=== PATIENT | female | born 1985 | race Caucasian/White ===

== ENCOUNTER 2018-09-13 22:59 | Emergency (ER) | payer SELFPAY ==
[2018-09-13] MEDS ORDERED: KETOROLAC 30 MG/ML INJ ONE (23:27)
[2018-09-13 23:53] LABS: Absolute Lymphocytes (CBC) 3.4 K/uL (0.7-4.9); Basophils % 0.5 % (0-1.3); Hematocrit 37.1 % (36.0-45.0); Lymphocytes % 38.5 % (15.3-44.8); MPV 10.1 fL (7.6-11.3)
[2018-09-14 00:06] LABS: ALT/SGPT 32 U/L (12-78); AST/SGOT 36 U/L (15-37); Albumin 3.4 g/dL (3.4-5.0); Alkaline Phosphatase 93 U/L (45-117); BUN Blood Urea Nitrogen 8 mg/dL (7-18); Bicarbonate 22 mmol/L (21-32); Glucose Level 104 mg/dL (74-106); Potassium 3.5 mmol/L (3.5-5.1); Protein, Total 7.5 g/dL (6.4-8.2); Sodium Level 139 mmol/L (136-145); Troponin (Emerg Dept Use Only) < 0.02 ng/mL (0.0-0.045)
[2018-09-14 00:10] LABS: Bilirubin Total < 0.1 mg/dL (0.2-1.0)
[2018-09-14 01:15] LABS: Urine Blood TRACE (NEG); Urine Glucose NEGATIVE (NEG); Urine Protein NEGATIVE (NEG)
--- NOTE | 2018-09-14 02:28 | ER ---
Nurse's Notes [facility] Name: Stephie Schaefer Age: 32 yrs Sex: Female : 1985 Arrival Date: 09/13/2018 Time: 23:00 Bed 7 Private MD: Diagnosis: Thoracic Back Pain;Elevated D-dimer Presentation: 09/13 23:15 Presenting complaint: Patient states: she was sitting on the couch watching TV tonight bb and started having severe back pain "it feels like fireworks going off" then she started having an anxiety attack with numbness and cramping to right side pt has had similar symptoms in the past but not this bad. Transition of care: patient was not received from another setting of care. Onset of symptoms was September 13, 2018. Risk Assessment: Do you want to hurt yourself or someone else? Patient reports no desire to harm self or others. Initial Sepsis Screen: Does the patient meet any 2 criteria? No. Patient's initial sepsis screen is negative. Does the patient have a suspected source of infection? No. Patient's initial sepsis screen is negative. Care prior to arrival: None. 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 - Social history:: Smoking status: Patient uses tobacco products, smokes one-half pack cigarettes per day, Patient uses alcohol, but reports only rare drinking. - Ebola Screening: : No symptoms or risks identified at this time. Screenin:50 Abuse screen: Denies threats or abuse. Nutritional screening: No deficits noted. ea Tuberculosis screening: No symptoms or risk factors identified. Fall Risk None identified. Assessment: 23:40 General: Appears uncomfortable, Behavior is calm, cooperative, appropriate for age. ea Pain: Complains of pain in thoracic area. Neuro: Level of Consciousness is awake, alert, obeys commands, Oriented to person, place, time, situation. Cardiovascular: Patient's skin is warm and dry. Respiratory: Airway is patent Respiratory effort is even, unlabored, Respiratory pattern is regular, symmetrical. Derm: Skin is normal. 09/14 00:24 Reassessment: Patient and/or family updated on plan of care and expected duration. Pain ea level reassessed. Patient is alert, oriented x 3, equal unlabored respirations, skin warm/dry/pink. 01:50 Reassessment: Patient and/or family updated on plan of care and expected duration. Pain ea level reassessed. Patient is alert, oriented x 3, equal unlabored respirations, skin warm/dry/pink. Awaiting on CT results. 02:23 Reassessment: Patient and/or family updated on plan of care and expected duration. Pain ea level reassessed. Patient is alert, oriented x 3, equal unlabored respirations, skin warm/dry/pink. Discharge instruction given to patient, verbalized the understanding of instruction. Pt left ED accompanied by friend Patient states feeling better. Patient states symptoms have improved. Vital Signs: 09/13 23:39 BP 157 / 85; Pulse 106; Resp 22 S; Temp 99.6(O); Pulse Ox 99% on R/A; Weight 93.44 kg bb (R); Height 5 ft. 4 in. (162.56 cm) (R); Pain 9/10; 09/14 00:21 BP 125 / 65; Pulse 81; Resp 16; Pulse Ox 97% on R/A; ea 01:00 BP 120 / 60; Pulse 70; Resp 18; Pulse Ox 99% ; ea 02:15 BP 118 / 70; Pulse 72; Resp 18; Temp 97.6(O); Pulse Ox 99% on R/A; ea 09/13 23:39 Body Mass Index 35.36 (93.44 kg, 162.56 cm) bb ED Course: 09/13 23:00 Patient arrived in ED. am2 23:02 Cheng Madrid MD is Attending Physician. ps1 23:34 Inserted saline lock: 22 gauge in left antecubital area, using aseptic technique. Blood ea collected. 23:35 Triage completed. bb 23:39 Arm band placed on Patient placed in an exam room, on a stretcher, on pulse oximetry. bb Family accompanied patient. 23:40 Patient has correct armband on for positive identification. Bed in low position. Call ea light in reach. 09/14 00:18 Karma Watson, RN is Primary Nurse. ea 01:30 CT completed. Patient tolerated procedure well. Patient moved to CT via stretcher. Patient moved back from CT. 01:43 CXR XRAY In Process Unspecified. EDMS 02:20 IV discontinued, intact, bleeding controlled, No redness/swelling at site. Pressure ea dressing applied. 02:30 CT Chest For PE Angio In Process Unspecified. EDMS 02:33 No provider procedures requiring assistance completed. ea Administered Medications: 09/13 23:44 Drug: TORadol - Ketorolac 15 mg Route: IVP; Site: left antecubital; jd3 09/14 02:34 Follow up: Response: No adverse reaction ea Outcome: 02:27 Discharge ordered by . ps1 02:34 Discharged to home ambulatory, with friend. ea 02:34 Condition: good 02:34 Discharge instructions given to patient, Instructed on discharge instructions, follow up and referral plans. medication usage, Demonstrated understanding of instructions, follow-up care, medications, Prescriptions given X 1. 02:36 Patient left the ED. ea Signatures: Dispatcher [employer] Ike Joel Brenda RN Tati Patrick Elena, RN Yahir Buckner ea, RN RN jd3 Singer, Phillip, MD MD ps1
--- NOTE | 2018-09-14 02:30 | EDPHYS ---
Physician Documentation [facility] Name: Stephie Schaefer Age: 32 yrs Sex: Female : 1985 Arrival Date: 09/13/2018 Time: 23:00 Bed 7 Private MD: ED Physician Cheng Madrid HPI: 09/13 23:17 This 32 yrs old Female presents to ER via Unassigned with complaints of Back ps1 Pain, Numbness. 23:17 Patient was seen and evaluated for same complaint approximately 2 months ago in [address] Told that she had pleurisy. States she additionally had a D\T\C for uterine abnormality around the same time. Does not know diagnosis other than her uterus closed. Now having pain that is atraumatic. No fever. Had a panic attack and then started having paresthesias after. . 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 - Social history:: Smoking status: Patient uses tobacco products, smokes one-half pack cigarettes per day, Patient uses alcohol, but reports only rare drinking. - Ebola Screening: : No symptoms or risks identified at this time. ROS: 23:17 Constitutional: Negative for fever, chills, and weight loss, Eyes: Negative for injury, ps1 pain, redness, and discharge, Cardiovascular: Negative for chest pain, palpitations, and edema, Respiratory: Negative for shortness of breath, cough, wheezing, and pleuritic chest pain, Abdomen/GI: Negative for abdominal pain, nausea, vomiting, diarrhea, and constipation, Skin: Negative for injury, rash, and discoloration, Neuro: Negative for headache, weakness, numbness, tingling, and seizure. 23:17 MS/extremity: Positive for pain, tenderness, of the thoracic area. 23:17 Psych: Positive for anxiety. Exam: 23:17 Constitutional: This is a well developed, well nourished patient who is awake, alert, ps1 and in no acute distress. Head/Face: Normocephalic, atraumatic. Eyes: Pupils equal round and reactive to light, extra-ocular motions intact. Lids and lashes normal. Conjunctiva and sclera are non-icteric and not injected. Chest/axilla: Normal chest wall appearance and motion. Nontender with no deformity. No lesions are appreciated. 23:17 Respiratory: Lungs have equal breath sounds bilaterally, clear to auscultation and percussion. No rales, rhonchi or wheezes noted. No increased work of breathing, no retractions or nasal flaring. Abdomen/GI: Soft, non-tender, with normal bowel sounds. No distension or tympany. No guarding or rebound. No evidence of tenderness throughout. Skin: Warm, dry with normal turgor. Normal color with no rashes, no lesions, and no evidence of cellulitis. Neuro: Awake and alert, GCS 15, oriented to person, place, time, and situation. Cranial nerves II-XII grossly intact. Sensory grossly intact. 23:17 Cardiovascular: Rate: tachycardic, Rhythm: regular, Pulses: no pulse deficits are appreciated. 23:17 Back: pain, that is mild, ROM is normal, normal spinal alignment noted, CVA tenderness, is absent, muscle spasm, is appreciated in the thoracic area. 23:17 Musculoskeletal/extremity: Extremities: all appear grossly normal, with no appreciated pain with palpation. Vital Signs: 23:39 BP 157 / 85; Pulse 106; Resp 22 S; Temp 99.6(O); Pulse Ox 99% on R/A; Weight 93.44 kg bb (R); Height 5 ft. 4 in. (162.56 cm) (R); Pain 9/10; 09/14 00:21 BP 125 / 65; Pulse 81; Resp 16; Pulse Ox 97% on R/A; ea 01:00 BP 120 / 60; Pulse 70; Resp 18; Pulse Ox 99% ; ea 02:15 BP 118 / 70; Pulse 72; Resp 18; Temp 97.6(O); Pulse Ox 99% on R/A; ea 09/13 23:39 Body Mass Index 35.36 (93.44 kg, 162.56 cm) bb MDM: 09/13 23:34 Patient medically screened. ps1 09/14 02:23 Data reviewed: vital signs, nurses notes, lab test result(s), EKG, radiologic studies, ps1 and as a result, I will discharge patient. Counseling: I had a detailed discussion with the patient and/or guardian regarding: the historical points, exam findings, and any diagnostic results supporting the discharge/admit diagnosis, radiology results, the need for outpatient follow up, to return to the emergency department if symptoms worsen or persist or if there are any questions or concerns that arise at home. ED course: labs and imaging reviewed and not cw acute emergent condition. Evaluated patients back and had multiple abnormalities. Performed HVLA and now patient is pain free. THoracic T5-7 rotation to right. SI joint on left. . 09/13 23:17 Order name: CBC with Diff; Complete Time: 00:33 ps1 09/13 23:17 Order name: CMP; Complete Time: 00:33 ps1 09/13 23:17 Order name: Troponin (emerg Dept Use Only); Complete Time: 00:33 ps1 09/13 23:17 Order name: DD; Complete Time: 00:53 ps1 09/13 23:46 Order name: Urine Dipstick--Ancillary (enter results); Complete Time: 01:25 cm6 09/13 23:46 Order name: Urine --Ancillary (enter results); Complete Time: 01:25 cm6 09/13 23:17 Order name: Urine Dipstick-Ancillary (obtain specimen); Complete Time: 23:45 ps1 09/13 23:17 Order name: CXR XRAY ps1 09/13 23:17 Order name: EKG; Complete Time: 23:18 ps1 09/14 00:35 Order name: CT Chest For PE Angio ps1 Administered Medications: 09/13 23:44 Drug: TORadol - Ketorolac 15 mg Route: IVP; Site: left antecubital; jd3 09/14 02:34 Follow up: Response: No adverse reaction ea Disposition: 09/14/18 02:27 Discharged to Home. Impression: Thoracic Back Pain, Elevated D-dimer. - Condition is Stable. - Discharge Instructions: Back Pain, Adult. - Prescriptions for Robaxin 500 mg Oral Tablet - take 2 tablet by ORAL route every 6 hours As needed; 40 tablet. - Medication Reconciliation Form, Thank You Letter, Antibiotic Education, Prescription Opioid Use form. - Follow up: Private Physician; When: 24 Hours; Reason: Further diagnostic work-up, Recheck today's complaints, Continuance of care, Re-evaluation by your physician. Follow up: Emergency Department; When: As needed; Reason: Fever > 102 F, Trouble breathing, Worsening of condition. - Problem is new. - Symptoms are resolved. Signatures: Dispatcher [employer] EDMS Rose Verdin RN RN bb Antunez, Elena, RN RN ea Davies, Jonathon, RN RN jd3 Singer, Phillip, MD MD ps1 Corrections: (The following items were deleted from the chart) 02:36 02:27 09/14/2018 02:27 Discharged to Home. Impression: Thoracic Back Pain; Elevated ea D-dimer. Condition is Stable. Forms are Medication Reconciliation Form, Thank You Letter, Antibiotic Education, Prescription Opioid Use. Follow up: Private Physician; When: 24 Hours; Reason: Further diagnostic work-up, Recheck today's complaints, Continuance of care, Re-evaluation by your physician. Follow up: Emergency Department; When: As needed; Reason: Fever > 102 F, Trouble breathing, Worsening of condition. Problem is new. Symptoms are resolved. ps1
[2018-09-14 02:48] VITALS: O2SAT 99
[2018-09-14 02:49] VITALS: BP 118/70; TEMP 97.6
--- NOTE | 2018-09-14 07:33 | EKG ---
Test Date: 2018-09-14 Test Time: 01:41:35 Verification Rep: MELVINA MEASUREMENT RESULTS: Intervals: Rate: 83 WY: 122 QRSD: 86 QT: 356 QTc: 418 [place]: P: 30 WY: 122 QRS: 40 T: 15 INTERPRETIVE STATEMENTS: Normal sinus rhythm Normal ECG Compared to ECG 01/23/2013 19:16:13 Short WY interval no longer present Electronically Signed On 09-14-18 07:33:08 CDT by Tanner Cummings
--- NOTE | 2018-09-14 09:03 | RAD REPORT ---
EXAM DESCRIPTION: RAD - Chest Single View - 09/14/2018 12:04 am CLINICAL HISTORY: Acute onset stabbing back pain COMPARISON: February 2016 TECHNIQUE: AP portable chest image was obtained 2324 hours . FINDINGS: Lungs are clear. Heart and vasculature are normal. No measurable pleural effusion and no p neumothorax. No acute bony abnormality seen. No acute aortic findings suspected. IMPRESSION: No acute cardiopulmonary process.
--- NOTE | 2018-09-14 10:20 | RAD REPORT ---
EXAM DESCRIPTION: CT - Chest For Pe Angio - 09/14/2018 5:01 am CLINICAL HISTORY: 32-year-old female with elevated d-dimer and chest pain. Mid upper back pain. TECHNIQUE: Following the administration of intravenous contrast, multiple high-resolution axial imag es of the chest were performed followed by sagittal and coronal reconstructed images. The CT study is performed according to ALARA (as low as reasonably achievable) or ALARA/IMAGE GENTLY, with automatic adjustment of mA and/or kV according to patient size. Performed on: 09/14/2018 at 1:22 AM COMPARISON: None FINDINGS: There is satisfactory visualization and contrast opacification of pulmonary arteries. No definite intra-arterial filling defects are identified to suggest acute or chronic pulmonary embolis m. The thoracic aorta is normal in caliber and contour without evidence of aneurysm or dissection. The lungs are well expanded and are clear. There is no evidence of a pneumothorax. There are no pleur al effusions. The heart is normal in size. There is no pericardial effusion. There is no evidence of hilar, mediastinal or axillary lymphadenopathy. No acute osseous abnormality is identified. The visualized upper abdominal structures are unremarkable. There is a small hiatal hernia. IMPRESSION: 1. No CT evidence to suggest acute or chronic pulmonary embolism, aortic aneurysm or aor tic dissection. 2. No evidence of acute intrathoracic disease. 3. Small hiatal hernia. Electronically signed by: Carla Silva DO 09/14/2018 2:06 AM CDT Due to temporary technical issues with the PACS/Fluency reporting system, reports are being signed by the in house radiologist as a courtesy to ensure prompt reporting. The interpreting radiologist is f ully responsible for the content of the report.
== END 2018-09-14 02:36 | disposition home or self-care (01) ==
LOC: ER 22:59
DX: R79.89 Other specified abnormal findings of blood chemistry (principal); F17.210 Nicotine dependence, cigarettes, uncomplicated; J45.909 Unspecified asthma, uncomplicated; Z88.6 Allergy status to analgesic agent
CPT/HCPCS: 36415; 71045; 71275; 80053; 81003; 81025; 84484; 85025; 85379; 93005; 96374; 99284; Q9967

== ENCOUNTER 2020-07-12 23:10 | Emergency (ER) | payer SELFPAY ==
[2020-07-12 23:42] LABS: Urine Blood 3+ (Negative); Urine Glucose Negative (Negative); Urine Protein Trace (Negative); Urine Specific Gravity >=1.030 (1.005-1.030); Urine pH 5.5 (5.0-7.0)
[2020-07-13 00:34] LABS: Urine Specific Gravity/Preg >1.030 (1.005-1.030)
[2020-07-13 00:42] LABS: Absolute Lymphocytes (CBC) 3.5 K/uL (0.7-4.9); Basophils % 0.7 % (0-1.3); Hematocrit 38.2 % (36.0-45.0); Lymphocytes % 35.9 % (15.3-44.8); MPV 10.1 fL (7.6-11.3); RBC Red Blood Cell Count 4.27 M/uL (3.86-4.86)
[2020-07-13 01:03] LABS: ALT/SGPT 24 U/L (12-78); AST/SGOT 22 U/L (15-37); Albumin 3.4 g/dL (3.4-5.0); Alkaline Phosphatase 81 U/L (45-117); BUN Blood Urea Nitrogen 11 mg/dL (7-18); Bicarbonate 25 mmol/L (21-32); Bilirubin Direct < 0.1 mg/dL (0-0.2); Bilirubin Total 0.2 mg/dL (0.2-1.0); Glucose Level 108 mg/dL (74-106); Lipase 78 U/L (73-393); Potassium 3.9 mmol/L (3.5-5.1); Protein, Total 7.3 g/dL (6.4-8.2); Sodium Level 142 mmol/L (136-145)
--- NOTE | 2020-07-13 02:51 | EDPHYS ---
Physician Documentation [facility] [place] Name: Stephie Schaefer Age: 34 yrs Sex: Female : 1985 Arrival Date: 07/12/2020 Time: 23:14 Bed 18 Private MD: ED Physician Ender Zimmer HPI: 07/12 23:42 This 34 yrs old Female presents to ER via Ambulatory with complaints of jmm Vaginal Bleeding. 23:42 The patient presents with vaginal bleeding that is. Onset: The symptoms/episode jmm began/occurred today. Modifying factors: The symptoms are alleviated by nothing, the symptoms are aggravated by nothing. Associated signs and symptoms: Pertinent negatives: dysuria, fever. This is a 34 year old female with a history of asthma, bronchitis that presents to the ED with complaints fo vaginal discharge and abdominal pain and swelling. Unsure if she is . . 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 - Social history:: Smoking status: Patient reports the use of cigarette tobacco products, smokes one-half pack cigarettes per day, Patient/guardian denies using alcohol, street drugs. ROS: 23:42 Constitutional: Negative for fever, chills, and weight loss, Cardiovascular: Negative jmm for chest pain, palpitations, and edema, Respiratory: Negative for shortness of breath, cough, wheezing, and pleuritic chest pain. 23:42 Abdomen/GI: Positive for abdominal pain. 23:42 : Positive for vaginal discharge. 23:42 All other systems are negative. Exam: 23:42 Constitutional: This is a well developed, well nourished patient who is awake, alert, jmm and in no acute distress. Head/Face: atraumatic. Eyes: EOMI, no conjunctival erythema appreciated ENT: Moist Mucus Membranes Neck: Trachea midline, Supple Chest/axilla: Normal chest wall appearance and motion. Cardiovascular: Regular rate and rhythm. No edema appreciated Respiratory: Normal respirations, no respiratory distress appreciated 23:42 Back: Normal ROM Skin: General appearance color normal MS/ Extremity: Moves all extremities, no obvious deformities appreciated, no edema noted to the lower extremities Neuro: Awake and alert, normal gait Psych: Behavior is normal, Mood is normal, Patient is cooperative and pleasant 23:42 Abdomen/GI: Inspection: abdomen appears normal, Bowel sounds: normal, Palpation: soft, moderate abdominal tenderness, in the suprapubic area, right lower quadrant and left lower quadrant. Vital Signs: 23:29 BP 137 / 75; Pulse 96; Resp 16 S; Temp 98(TE); Pulse Ox 99% on R/A; Weight 92.08 kg bb (R); Height 5 ft. 4 in. (162.56 cm) (R); Pain 7/10; 07/13 03:08 BP 126 / 83; Pulse 85; Resp 20; Pulse Ox 98% on R/A; ak2 07/12 23:29 Body Mass Index 34.84 (92.08 kg, 162.56 cm) MDM: 00:10 Patient medically screened. [facility] 00:30 Data reviewed: vital signs, nurses notes. Transition of care: After a detail discussion alphonse of the patient's case, care is transferred to Ender Zimmer MD. 07/12 23:42 Order name: Urine Dipstick-Ancillary; Complete Time: 00:10 [facility] 07/12 23:48 Order name: Urine --Ancillary (enter results) [facility] 07/12 23:49 Order name: Urine --Ancillary [facility] 07/13 00:11 Order name: Basic Metabolic Panel [facility] 07/13 00:11 Order name: CBC with Diff [facility] 07/13 00:11 Order name: Hepatic Function [facility] 07/12 23:49 Order name: Urine Dipstick-Ancillary (obtain specimen); Complete Time: 23:50 [facility] 07/12 23:49 Order name: Urine Test (obtain specimen); Complete Time: 23:50 [facility] 07/13 00:11 Order name: Lipase [facility] 07/13 00:11 Order name: IV Saline Lock [facility] 07/13 00:11 Order name: Labs collected and sent [facility] 07/13 00:13 Order name: CT Abd/Pelvis - IV Contrast Only [facility] Administered Medications: No medications were administered Disposition: 07/13/20 02:50 Discharged to Home. Impression: Other abnormal uterine and vaginal bleeding. - Condition is Stable. - Discharge Instructions: Dysfunctional Uterine Bleeding. - Medication Reconciliation Form, Thank You Letter, Antibiotic Education, Prescription Opioid Use form. - Follow up: Private Physician; When: Upon discharge from the Emergency Department; Reason: Recheck today's complaints, Continuance of care, Re-evaluation by your physician. Follow up: Sami Kenny MD; When: Upon discharge from the Emergency Department; Reason: Recheck today's complaints, Continuance of care, Re-evaluation by your physician. - Problem is new. - Symptoms are unchanged. Signatures: Dispatcher [employer] EDMS Jian Nelson PA PA jmm Ballard, Brenda, DEMARCO RN Ender Travis MD MD tw4 Solomon Okeefe mw2 Colton Beebe ak2 Corrections: (The following items were deleted from the chart) 02:51 02:50 07/13/2020 02:50 Discharged to Home. Impression: Other abnormal uterine and tw4 vaginal bleeding. Condition is Stable. Forms are Medication Reconciliation Form, Thank You Letter, Antibiotic Education, Prescription Opioid Use. Follow up: Private Physician; When: Upon discharge from the Emergency Department; Reason: Recheck today's complaints, Continuance of care, Re-evaluation by your physician. Problem is new. Symptoms are unchanged. tw4 03:09 02:51 07/13/2020 02:50 Discharged to Home. Impression: Other abnormal uterine and ak2 vaginal bleeding. Condition is Stable. Discharge Instructions: Dysfunctional Uterine Bleeding. Forms are Medication Reconciliation Form, Thank You Letter, Antibiotic Education, Prescription Opioid Use. Follow up: Private Physician; When: Upon discharge from the Emergency Department; Reason: Recheck today's complaints, Continuance of care, Re-evaluation by your physician. Follow up: Sami Kenny; When: Upon discharge from the Emergency Department; Reason: Recheck today's complaints, Continuance of care, Re-evaluation by your physician. Problem is new. Symptoms are unchanged. tw4
--- NOTE | 2020-07-13 02:51 | ER ---
Nurse's Notes [facility] [place] Name: Stephie Schaefer Age: 34 yrs Sex: Female : 1985 Arrival Date: 07/12/2020 Time: 23:14 Bed 18 Private MD: Diagnosis: Other abnormal uterine and vaginal bleeding Presentation: 07/12 23:29 Chief complaint: Patient states: she thinks she may have just had a miscarriage she bb "pulled out an umbilical cord" then about 2 hours later passed a big blood clot and is now having some brownish, tarry discharge with sharp lower abdominal pain. Coronavirus screen: At this time, the client does not indicate any symptoms associated with coronavirus-19. Ebola Screen: No symptoms or risks identified at this time. Initial Sepsis Screen: Does the patient meet any 2 criteria? No. Patient's initial sepsis screen is negative. Does the patient have a suspected source of infection? No. Patient's initial sepsis screen is negative. Risk Assessment: Do you want to hurt yourself or someone else? Patient reports no desire to harm self or others. Onset of symptoms was July 12, 2020. 23:29 Method Of Arrival: Ambulatory bb 23:29 Acuity: GABRIELA 3 bb 23:34 Note pt states she does not know if she was . bb Triage Assessment: 23:32 General: Appears in no apparent distress. uncomfortable, Behavior is calm, cooperative. bb Pain: Complains of pain in abdomen Pain currently is 7 out of 10 on a pain scale. Neuro: Level of Consciousness is awake, alert, obeys commands, Oriented to person, place, time, situation. Cardiovascular: Capillary refill < 3 seconds Patient's skin is warm and dry. Respiratory: Respiratory effort is even, unlabored, Respiratory pattern is regular. GI: Abdomen is obese, Reports lower abdominal pain. : Reports vaginal bleeding that is brown. Derm: Skin is pink, warm \\T\\ dry. Musculoskeletal: Circulation, motion, and sensation intact. 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 - Social history:: Smoking status: Patient reports the use of cigarette tobacco products, smokes one-half pack cigarettes per day, Patient/guardian denies using alcohol, street drugs. Vital Signs: 23:29 BP 137 / 75; Pulse 96; Resp 16 S; Temp 98(TE); Pulse Ox 99% on R/A; Weight 92.08 kg bb (R); Height 5 ft. 4 in. (162.56 cm) (R); Pain 7/10; 06 03:08 BP 126 / 83; Pulse 85; Resp 20; Pulse Ox 98% on R/A; ak2 07/12 23:29 Body Mass Index 34.84 (92.08 kg, 162.56 cm) ED Course: 07/12 23:14 Patient arrived in ED. es 23:31 Triage completed. bb 23:32 Arm band placed on Patient placed in waiting room, Patient notified of wait time. 07/13 00:07 Ender Zimmer MD is Attending Physician. tw4 00:07 Jian Nelson PA is PHCP. alphonse 00:16 Colton Beebe is Primary Nurse. ak2 01:34 CT Abd/Pelvis - IV Contrast Only In Process Unspecified. EDMS 02:50 Sami Kenny MD is Referral Physician. tw4 Administered Medications: No medications were administered Outcome: 02:50 Discharge ordered by . tw4 03:08 Discharged to home ambulatory. ak2 03:08 Condition: good 03:08 Discharge instructions given to patient. 03:09 Patient left the ED. ak2 Signatures: Dispatcher [employer] EDMS Jian Nelson PA PA jmm Salyer, Edna es Ballard, Brenda, RN RN bb Ender Zimmer MD MD tw Colton Beebe ak2
[2020-07-13 03:15] VITALS: TEMP 98
[2020-07-13 03:16] VITALS: BP 126/83; O2SAT 98
--- NOTE | 2020-07-13 11:27 | RAD REPORT ---
EXAM DESCRIPTION: CT - Abdomen Pelvis W Contrast - 07/13/2020 9:22 am CLINICAL HISTORY: The patient is 34 years old and is Female; abdominal distention, pelvic pain TECHNIQUE: Axial computed tomography images of the abdomen and pelvis with intravenous contrast. S agittal and coronal reformatted images were created and reviewed. This CT exam was performed using one or more of the following dose reduction techniques: automated exposure control, adjustment of t he mA and/or kV according to patient size, and/or use of iterative reconstruction technique. COMPARISON: No relevant prior studies available. FINDINGS: Lung bases: Unremarkable. No mass. No consolidation. Mediastinum: Small hiatal hernia. ABDOMEN: Liver: Unremarkable. No mass. Gallbladder and bile ducts: Unremarkable. No calcified stones. No ductal dilation. Pancreas: Unremarkable. No mass. No ductal dilation. Spleen: Unremarkable. No splenomegaly. Adrenals: Unremarkable. No mass. Kidneys and ureters: Unremarkable. No solid mass. No hydronephrosis. Stomach and bowel: Scattered colonic diverticula. No obstruction. No mucosal thickening. PELVIS: Appendix: No findings to suggest acute appendicitis. Bladder: Unremarkable. No mass. Reproductive: Unremarkable as visualized. ABDOMEN and PELVIS: Intraperitoneal space: Unremarkable. No free air. No significant fluid collection. Bones/joints: No acute fracture. No dislocation. Soft tissues: Small fat-containing umbilical hernia. Vasculature: Unremarkable. No abdominal aortic aneurysm. Lymph nodes: Unremarkable. No enlarged lymph nodes. IMPRESSION: No acute findings in the abdomen or pelvis. Electronically signed by: Sami Watson MD 07/13/2020 2:16 AM CDT Due to temporary technical issues with the PACS/Fluency reporting system, reports are being signed by the in house radiologist without review as a courtesy to ensure prompt reporting. The interpreting r adiologist is fully responsible for the content of the report.
== END 2020-07-13 03:09 | disposition home or self-care (01) ==
LOC: ER 23:10
DX: N93.8 Other specified abnormal uterine and vaginal bleeding (principal); F17.210 Nicotine dependence, cigarettes, uncomplicated; J45.909 Unspecified asthma, uncomplicated
CPT/HCPCS: 36415; 74177; 80048; 80076; 81003; 81025; 83690; 85025; 99283; Q9967

== ENCOUNTER 2023-07-26 22:46 | Emergency (ER) | payer SELFPAY ==
[2023-07-26] MEDS ORDERED: ONDANSETRON 4 MG/2 ML VIAL ONE (23:11)
[2023-07-26] MEDS ORDERED: KETOROLAC 30 MG/ML INJ ONE (23:11)
[2023-07-26] MEDS ORDERED: NA CHLORIDE 0.9% 1,000 ML ONE (23:11)
[2023-07-26 23:45] LABS: Absolute Basophils 0.1 K/uL (0-0.5); Absolute Eosinophils 0.2 K/uL (0-0.5); Absolute Lymphocytes (CBC) 3.8 K/uL (0.7-4.9); Absolute Monocytes 0.9 K/uL (0.1-1.3); Absolute Neutrophil 4.4 K/uL (1.8-8.0); Basophils % 0.6 % (0-1.3); Eosinophils % 2.3 % (0-4.4); Hematocrit 37.7 % (36.0-45.0); Hemoglobin 12.9 g/dL (12.0-15.0); Lymphocytes % 40.5 % (15.3-44.8); MCH 30.7 pg (27.0-35.0); MCHC 34.2 g/dL (32.0-36.0); MCV 89.7 fL (80-100); MPV 9.9 fL (7.6-11.3); Monocytes % 9.5 % (3.3-12.3); Neutrophils % 47.1 % (41.7-73.7); Nucleated RBC Absolute Count 0.1 (0-0); Nucleated Red Blood Cells % 0.6 % (0-0); Platelets 250 thou/uL (152-406)
[2023-07-26 23:57] LABS: Albumin 3.4 g/dL (3.4-5.0); Albumin/Globulin Ratio 0.9 (1.1-1.8); Alkaline Phosphatase 79 U/L (45-117); Anion Gap 7.8 mEq/L (5.0-15.0); BUN Blood Urea Nitrogen 10 mg/dL (7-18); Bicarbonate 28 mEq/L (21-32); Bilirubin Total 0.2 mg/dL (0.2-1.0); Globulin 3.9 g/dL (2.3-3.5); Glomerular Filtration Rate 113 ml/min (=/>90); Glucose Level 96 mg/dL (74-106); Lipase 43 U/L (13-75); Potassium 3.8 mEq/L (3.5-5.1); Protein, Total 7.3 g/dL (6.4-8.2); Sodium Level 139 mEq/L (136-145)
[2023-07-27 00:02] LABS: ALT/SGPT < 14 U/L (13-56); AST/SGOT < 10 U/L (15-37)
[2023-07-27 00:36] LABS: Specific Gravity > 1.030 (1.005-1.030); Sqamous Epithelial 20-50 /HPF (None Seen); Urine Bacteria <20 /HPF (<20); Urine Bilirubin NEGATIVE (Negative); Urine Blood Negative (Negative); Urine Clarity Extremely Turbid (Clear); Urine Color Yellow (Yellow); Urine Culture Reflex Order NOT NEEDED; Urine Glucose NEGATIVE (Negative); Urine Ketones NEGATIVE (Negative); Urine Microscopic Reflex YN ORDER UMIC; Urine Mucus 2+ /HPF (None Seen); Urine Nitrite NEGATIVE (Negative); Urine Protein 1+ (Negative); Urine RBC None Seen /HPF (None Seen); Urine Urobilinogen 1+ (Normal); Urine Yeast (Budding) Trace /HPF (None Seen)
--- NOTE | 2023-07-27 02:09 | EDPHYS ---
Physician Documentation [facility] [place] Name: May Age: 37 yrs Sex: Female : 1985 Arrival Date: 07/26/2023 Time: 22:46 Bed 17 Private MD: ED Physician Adalberto Orellana HPI: 07/25 23:20 This 37 yrs old Female presents to ER via Ambulatory with complaints of Belly button kb pain. 23:20 Pt is a 37 year old female who presents for umbilical pain that started yesterday with kb nausea and diarrhea. Denies similar episodes in the past. Denies fever. . Historical: - Allergies: 23:06 Ibuprofen; ha1 23:06 Naprosyn; ha1 - PMHx: 23:06 Asthma; Bronchitis; Hirschsprungs; ha1 - Immunization history:: Adult Immunizations up to date. - Infectious Disease History:: Denies. - Social history:: Smoking status: Patient reports the use of cigarette tobacco products, denies chronic smoking, but will smoke occasionally. ROS: 23:20 Constitutional: As per HPI kb Exam: 23:20 Constitutional: This is a well developed, well nourished patient who is awake, alert, kb and in no acute distress. Head/Face: Normocephalic, atraumatic. ENT: Moist Mucous membranes Cardiovascular: Regular rate Respiratory: Respirations even and unlabored. No increased work of breathing. Talking in full sentences Skin: Warm, dry with normal turgor. Normal color. MS/ Extremity: Pulses equal, no cyanosis. Neurovascular intact. Full, normal range of motion. Neuro: Awake and alert, GCS 15, oriented to person, place, time, and situation. Moves all extremities. Normal gait. 23:20 Abdomen/GI: Inspection: abdomen appears normal, Bowel sounds: normal, Palpation: soft, in all quadrants, mild abdominal tenderness, in the left lower quadrant, moderate abdominal tenderness, in the umbilical area, Vital Signs: 23:01 BP 137 / 74; Pulse 94; Resp 17 S; Temp 98(T); Pulse Ox 100% on R/A; Weight 86.64 kg; ha1 Height 5 ft. 4 in. ; 07/26 02:31 BP 125 / 81; Pulse 79; Resp 17 S; Temp 97.9; Pulse Ox 100% on R/A; ha1 07/25 23:01 Body Mass Index 32.78 (86.64 kg, 162.56 cm) [facility] MDM: 07/25 22:56 Patient medically screened. katelyn 23:20 Data reviewed: vital signs, nurses notes. katelyn 07/26 00:55 Transition of care: After a detail discussion of the patient's case, care is kb transferred to Adalberto Orellana MD. 01:57 ED course: TECHNIQUE: Contiguous axial images obtained through the abdomen and pelvis sp4 following the uneventful administration of IV contrast. Coronal and sagittal reformatted images were provided. This exam was performed according to our departmental dose-optimization program, which includes automated exposure control, adjustment of the mA and/or kV according to patient size and/or use of iterative reconstruction technique. COMPARISON: July 2020 FINDINGS: Lung bases: Clear Liver: Unremarkable Gallbladder and biliary system: Unremarkable Pancreas: Unremarkable Spleen: Unremarkable Adrenals: Unremarkable Kidneys: Normal renal cortical enhancement. No calculi. No hydronephrosis. GI: No obstruction. No appreciable mucosal thickening. Appendix: No findings to suggest acute appendicitis. Urinary bladder: Unremarkable Reproductive: 3.7 cm simple cyst in the right ovary for which no follow-up imaging is recommended Lymph nodes: No pathologically enlarged lymph nodes. Peritoneum: Trace fluid in the pelvis, which may be physiologic. No free air. Vessels: No abdominal aortic aneurysm. Abdominal wall: Small fat-containing periumbilical ventral hernia Bones: Mild bilateral sacroiliitis IMPRESSION: 1. No acute intra-abdominal or pelvic disease. 2. 3.7 cm simple cyst in the right ovary, for which no follow-up imaging is recommended. 3. Trace fluid in the pelvis, which may be physiologic. 4. Mild bilateral sacroiliitis. Electronically signed by: Juan Alberto Pike MD 07/27/2023 01:14 AM. 02:06 ED course: CT has revealed - Abdominal wall: Small fat-containing periumbilical ventral sp4 hernia. Patient was advised to see general surgeon for hernia fix. Will refer to Dr. Howard for general surgery. 07/26 00:25 Order name: Comprehensive Metabolic Panel; Complete Time: 00:26 EDMS 07/26 00:25 Order name: Lipase; Complete Time: 00:26 EDMS 07/26 00:25 Order name: CBC with Automated Diff; Complete Time: 00:26 EDMS 07/26 00:26 Order name: Urinalysis w/ reflexes; Complete Time: 00:36 EDMS 07/26 00:26 Order name: Test, Urine; Complete Time: 00:49 EDMS 07/26 00:25 Order name: Abdomen EDMS 07/25 23:01 Order name: IV Saline Lock; Complete Time: 23:08 kb 07/25 23:01 Order name: Labs collected and sent; Complete Time: 23:08 kb Administered Medications: 07/25 23:20 Drug: NS 0.9% IV 1000 ml IV at 1 bolus Per protocol; 1000 mL bolus Route: IV; Rate: 1 cp4 bolus; Site: left antecubital; 07/26 02:33 Follow up: Response: No adverse reaction; IV Status: Completed infusion; IV Intake: ha1 1000ml 07/25 23:20 Drug: Ondansetron IVP 4 mg IVP once; over 2 minutes Route: IVP; Site: left antecubital; cp4 23:47 Follow up: Response: No adverse reaction cp4 23:21 Drug: TORadol - Ketorolac IVP 15 mg IVP once Route: IVP; Site: left antecubital; cp4 23:47 Follow up: Response: No adverse reaction cp4 Disposition: 07/26 02:06 Co-signature as Attending Physician, Adalberto Orellana MD I agree with the assessment sp4 and plan of care. I reviewed the patient's care provided by Advanced Practice Provider \T\ agree w/ the diagnosis \T\ care plan. I personally saw the pt \T\ performed a substantive portion of the visit, incldng all aspects of the (History/Exam/Medical Decision Making). Disposition Summary: 07/27/23 02:08 Discharge Ordered Notes: Location: Home sp4 Problem: new sp4 Symptoms: have improved sp4 Condition: Stable sp4 Diagnosis - Umbilical hernia without obstruction or gangrene sp4 - Fat containing umbilical hernia sp4 Followup: sp4 - With: Raul Howard MD - When: 7 - 10 days - Reason: Recheck today's complaints Discharge Instructions: - Discharge Summary Sheet sp4 - Umbilical Hernia, Adult sp4 Forms: - Patient Portal Instructions sp4 Prescriptions: - Tramadol 50 mg Oral tablet - take 1 tablet ORAL route every 8 hours as needed; 20 tablet; Refills: 0, sp4 Product Selection Permitted Signatures: Dispatcher [employer] EDMS Radha Medley FNP-C GROUNDS WORKER-CkSelina Owen RN RN ha1 Adalberto Orellana MD MD sp4 Desire Conway cp4 Corrections: (The following items were deleted from the chart) 00:27 00:26 CBC+H.LAB.BRZ ordered. EDMS EDMS 00: 00:26 COMPREHENSIVE METABOLIC PANEL+C.LAB.BRZ ordered. EDMS EDMS 00: 00:26 LIPASE+C.LAB.BRZ ordered. EDMS EDMS 00: 00:26 Test, Urine+UC.LAB.BRZ ordered. EDMS EDMS 00: 00:26 Urinalysis+U.LAB.BRZ ordered. EDMS EDMS 00: 00:26 Abdomen Pelvis W Con+CT.RAD.BRZ ordered. EDMS EDMS
--- NOTE | 2023-07-27 02:09 | ER ---
Nurse's Notes [facility] [place] Name: May Age: 37 yrs Sex: Female : 1985 Arrival Date: 07/26/2023 Time: 22:46 Bed 17 Private MD: Diagnosis: Umbilical hernia without obstruction or gangrene;Fat containing umbilical hernia Presentation: 07/25 23:01 Chief complaint: Patient states: I have nausea, diarrhea, and pain in my belly button. ha1 I had an umbilical hernia and I am not sure if it is related to it. Coronavirus screen: Vaccine status: Patient reports being unvaccinated. Ebola Screen: No symptoms or risks identified at this time. Initial Sepsis Screen: Does the patient meet any 2 criteria? No. Patient's initial sepsis screen is negative. Does the patient have a suspected source of infection? No. Patient's initial sepsis screen is negative. Risk Assessment: Do you want to hurt yourself or someone else? Patient reports no desire to harm self or others. Onset of symptoms was July 26, 2023. 23:01 Method Of Arrival: Ambulatory ha1 23:01 Acuity: GABRIELA 3 ha1 Triage Assessment: 22:54 General: Appears uncomfortable, Behavior is cooperative. Pain: Complains of pain in ha1 umbilical area Pain does not radiate. Pain currently is 8 out of 10 on a pain scale. Quality of pain is described as throbbing, Aggravated by increased activity, repositioning. Neuro: Level of Consciousness is awake, alert, obeys commands, Oriented to person, place, time, situation. Cardiovascular: Patient's skin is warm and dry. Respiratory: Airway is patent Respiratory effort is even, unlabored, Respiratory pattern is regular, symmetrical. GI: Reports diarrhea, nausea. Derm: Skin is pink, warm \T\ dry. Musculoskeletal: Circulation, motion, and sensation intact. Range of motion: intact in all extremities. Historical: - Allergies: 23:06 Ibuprofen; ha1 23:06 Naprosyn; ha1 - PMHx: 23:06 Asthma; Bronchitis; Hirschsprungs; ha1 - Immunization history:: Adult Immunizations up to date. - Infectious Disease History:: Denies. - Social history:: Smoking status: Patient reports the use of cigarette tobacco products, denies chronic smoking, but will smoke occasionally. Screenin:07 [facility] ED Fall Risk Assessment (Adult) History of falling in the last 3 months, ha1 including since admission No falls in past 3 months (0 pts) Confusion or Disorientation No (0 pts) Intoxicated or Sedated No (0 pts) Impaired Gait No (0 pts) Mobility Assist Device Used No (0 pt) Altered Elimination No (0 pt) Score/Fall Risk Level 0 - 2 = Low Risk Oriented to surroundings, Maintained a safe environment, Educated pt \T\ family on fall prevention, incl call for assistance when getting out of bed, Hourly rounding (assess needs \T\ fall precautionary measures) done. Abuse screen: Denies threats or abuse. Denies injuries from another. Nutritional screening: No deficits noted. Tuberculosis screening: No symptoms or risk factors identified. Assessment: 23:08 Pain: Complains of pain in abdomen and umbilical area Pain currently is 8 out of 10 on cp4 a pain scale. GI: Abdomen is round non-distended, Bowel sounds present X 4 quads. Abdomen is tender to palpation in abdomen and umbilical area Reports diarrhea, nausea, vomiting. 07/26 02:31 Reassessment: Patient and/or family updated on plan of care and expected duration. Pain ha1 level reassessed. Patient is alert, oriented x 3, equal unlabored respirations, skin warm/dry/pink. Patient states feeling better. Patient states symptoms have improved. Vital Signs: 07/25 23:01 BP 137 / 74; Pulse 94; Resp 17 S; Temp 98(T); Pulse Ox 100% on R/A; Weight 86.64 kg; ha1 Height 5 ft. 4 in. ; 07/26 02:31 BP 125 / 81; Pulse 79; Resp 17 S; Temp 97.9; Pulse Ox 100% on R/A; ha1 07/25 23:01 Body Mass Index 32.78 (86.64 kg, 162.56 cm) ha1 ED Course: 07/25 22:52 Patient arrived in ED. ra3 22:54 Patient has correct armband on for positive identification. Placed in gown. Bed in low ha1 position. Call light in reach. Side rails up X 1. 22:55 Arm band placed on left wrist. ha1 22:56 Radha Medley FNP-C is PHCP. kb 22:56 Adalberto Orellana MD is Attending Physician. kb 22:58 Desire Conway is Primary Nurse. cp4 23:06 Triage completed. ha1 23:08 No provider procedures requiring assistance completed. Inserted saline lock: 22 gauge cp4 in left antecubital area, using aseptic technique. Blood collected. 07/26 00:55 Abdomen In Process Unspecified. EDMS 02:07 Raul Howard MD is Referral Physician. sp4 02:33 Provided Education on: follow ups . ha1 02:33 IV discontinued, intact, bleeding controlled, No redness/swelling at site. Pressure ha1 dressing applied. Administered Medications: 07/25 23:20 Drug: NS 0.9% IV 1000 ml IV at 1 bolus Per protocol; 1000 mL bolus Route: IV; Rate: 1 cp4 bolus; Site: left antecubital; 07/26 02:33 Follow up: Response: No adverse reaction; IV Status: Completed infusion; IV Intake: ha1 1000ml 07/25 23:20 Drug: Ondansetron IVP 4 mg IVP once; over 2 minutes Route: IVP; Site: left antecubital; cp4 23:47 Follow up: Response: No adverse reaction cp4 23:21 Drug: TORadol - Ketorolac IVP 15 mg IVP once Route: IVP; Site: left antecubital; cp4 23:47 Follow up: Response: No adverse reaction cp4 Medication: 23:08 VIS not applicable for this client. cp4 Intake: 07/26 02:33 IV: 1000ml; Total: 1000ml. ha1 Outcome: 02:08 Discharge ordered by . sp4 02:32 Discharged to home ambulatory, ha1 02:32 Condition: stable 02:32 Discharge instructions given to patient, Instructed on discharge instructions, follow up and referral plans. medication usage, Demonstrated understanding of instructions, follow-up care, medications, Prescriptions given X 1, 02:34 Patient left the ED. ha1 Signatures: Dispatcher [employer] EDMS Radha Medley, DAVID-Myranda HERNANDEZ-Selina Poole, RN RN ha1 Adalberto Orellana MD MD sp4 Potter, Christina cp4 Mallory Garcia 3
[2023-07-27 02:56] VITALS: BP 125/81; TEMP 97.9; O2SAT 100
--- NOTE | 2023-07-27 13:59 | RAD REPORT ---
EXAM DESCRIPTION: CT - Abdomen Pelvis W Contrast - 07/27/2023 6:56 am CLINICAL HISTORY: Abd pain TECHNIQUE: Contiguous axial images obtained through the abdomen and pelvis following the uneventful administration of IV contrast. Coronal and sagittal reformatted images were provided. This exam was performed according to our departmental dose-optimization program, which includes autom ated exposure control, adjustment of the mA and/or kV according to patient size and/or use of iterati ve reconstruction technique. COMPARISON: July 2020 FINDINGS: Lung bases: Clear Liver: Unremarkable Gallbladder and biliary system: Unremarkable Pancreas: Unremarkable Spleen: Unremarkable Adrenals: Unremarkable Kidneys: Normal renal cortical enhancement. No calculi. No hydronephrosis. GI: No obstruction. No appreciable mucosal thickening. Appendix: No findings to suggest acute appendicitis. Urinary bladder: Unremarkable Reproductive: 3.7 cm simple cyst in the right ovary for which no follow-up imaging is recommended Lymph nodes: No pathologically enlarged lymph nodes. Peritoneum: Trace fluid in the pelvis, which may be physiologic. No free air. Vessels: No abdominal aortic aneurysm. Abdominal wall: Small fat-containing periumbilical ventral hernia Bones: Mild bilateral sacroiliitis IMPRESSION: 1. No acute intra-abdominal or pelvic disease. 2. 3.7 cm simple cyst in the right ovary, for which no follow-up imaging is recommended. 3. Trace fluid in the pelvis, which may be physiologic. 4. Mild bilateral sacroiliitis. Electronically signed by: Juan Alberto Pike MD 07/27/2023 01:14 AM CDT RP Due to temporary technical issues with the PACS/Fluency reporting system, reports are being signed by the in house radiologist without review as a courtesy to ensure prompt reporting. The interpreting r adiologist is fully responsible for the content of the report.
== END 2023-07-27 02:34 | disposition home or self-care (01) ==
LOC: ER 22:46
DX: K42.9 Umbilical hernia without obstruction or gangrene (principal); F17.210 Nicotine dependence, cigarettes, uncomplicated
CPT/HCPCS: 36415; 74177; 80053; 81001; 81025; 83690; 85025; 96361; 96374; 96375; 99284; J2405; J7030; Q9967

== ENCOUNTER 2024-11-13 23:16 | Emergency (ER) | payer OTHER ==
[2024-11-14] MEDS ORDERED: BISACODYL 10 MG RECTAL SUPP ONE ×2 (00:42→01:23)
[2024-11-14] MEDS ORDERED: ONDANSETRON 4 MG/2 ML VIAL ONE (00:42)
[2024-11-14] MEDS ORDERED: NA CHLORIDE 0.9% 1,000 ML ONE (00:43)
[2024-11-14] MEDS ORDERED: MORPHINE 4 MG/ML SYR ONE ×2 (00:43→03:18)
[2024-11-14] MEDS ORDERED: LACTULOSE 20 GM/30 ML UCUP ONE (00:43)
[2024-11-14] MEDS ORDERED: FAMOTIDINE 20 MG/2 ML VIAL IV ONE (00:43)
[2024-11-14 01:04] LABS: Absolute Lymphocytes (CBC) 3.4 K/uL (0.7-4.9); Hematocrit 38.7 % (36.0-45.0); Hemoglobin 13.0 g/dL (12.0-15.0); MCH 30.7 pg (27.0-35.0); MCHC 33.6 g/dL (32.0-36.0); MCV 91.4 fL (80-100); MPV 9.4 fL (7.6-11.3); Nucleated RBC Absolute Count 0.0 (0-0); Nucleated Red Blood Cells % 0.0 % (0-0); RBC Red Blood Cell Count 4.23 M/uL (3.86-4.86); White Blood Count 12.00 thou/uL (4.3-10.9)
[2024-11-14 01:34] LABS: ALT/SGPT 29.0 U/L (13-56); AST/SGOT 21.0 U/L (15-37); Albumin 3.4 g/dL (3.4-5.0); Albumin/Globulin Ratio 0.8 (1.1-1.8); Alkaline Phosphatase 87.0 U/L (45-117); Anion Gap 9.8 mEq/L (5.0-15.0); BUN Blood Urea Nitrogen 13.0 mg/dL (7-18); Globulin 4.4 g/dL (2.3-3.5); Glucose Level 101.0 mg/dL (74-106); Lipase 25.0 U/L (13-75); Potassium 3.8 mEq/L (3.5-5.1); Troponin High Sensitivity 5.5 pg/mL (<58.9)
[2024-11-14] MEDS ORDERED: METOCLOPRAMIDE 10 MG/2mL INJ ONE (03:17)
--- NOTE | 2024-11-14 04:00 | ER ---
Nurse's Notes [facility] Name: May Alma Age: 38 yrs Sex: Female : 1985 Arrival Date: 11/13/2024 Time: 23:16 Bed 4 Private MD: Diagnosis: Constipation, unspecified;Abdominal pain, unspecified Presentation: 11/14 00:12 Chief complaint: Patient states: Have not had a good bowel movement in 2 months. Now vc1 dizzy when I move around and left sided abdominal pain and but is pulsating. Coronavirus screen: Client denies travel out of the [place] in the last 14 days. At this time, the client does not indicate any symptoms associated with coronavirus-19. Ebola Screen: Patient negative for fever greater than or equal to 101.5 degrees Fahrenheit, and additional compatible Ebola Virus Disease symptoms. Initial Sepsis Screen: Does the patient meet any 2 criteria? No. Patient's initial sepsis screen is negative. Does the patient have a suspected source of infection? No. Patient's initial sepsis screen is negative. Risk Assessment: Do you want to hurt yourself or someone else? Patient reports no desire to harm self or others. Onset of symptoms is unknown. Care prior to arrival: Medication(s) given: miralax and linzess. 00:12 Method Of Arrival: Ambulatory vc1 00:12 Acuity: GABRIELA 3 vc1 Triage Assessment: 00:15 General: Appears in no apparent distress. uncomfortable, Behavior is calm, cooperative, vc1 appropriate for age. Pain: Complains of pain in anterior aspect of left lateral abdomen Pain does not radiate. Pain currently is 6 out of 10 on a pain scale. EENT: No deficits noted. No signs and/or symptoms were reported regarding the EENT system. Neuro: Level of Consciousness is awake, alert, obeys commands, Oriented to person, place, time, situation, Appropriate for age. Cardiovascular: Capillary refill < 3 seconds Patient's skin is warm and dry. Respiratory: Airway is patent Respiratory effort is even, unlabored, Respiratory pattern is regular, symmetrical. GI: Abdomen is round non-distended, Reports constipation, gaseousness. : No deficits noted. No signs and/or symptoms were reported regarding the genitourinary system. Derm: Skin is intact, is healthy with good turgor, Skin is dry, Skin is normal, Skin temperature is warm. Musculoskeletal: Circulation, motion, and sensation intact. Range of motion: intact in all extremities. 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 - Infectious Disease History:: Denies. - Social history:: Smoking status: Patient reports the use of cigarette tobacco products, smokes one-half pack cigarettes per day. Screenin:05 [facility] ED Fall Risk Assessment (Adult) History of falling in the last 3 months, kb4 including since admission No falls in past 3 months (0 pts) Confusion or Disorientation No (0 pts) Intoxicated or Sedated No (0 pts) Impaired Gait No (0 pts) Mobility Assist Device Used No (0 pt) Altered Elimination No (0 pt) Score/Fall Risk Level 0 - 2 = Low Risk. Abuse screen: Denies threats or abuse. Denies injuries from another. Nutritional screening: No deficits noted. Tuberculosis screening: No symptoms or risk factors identified. Assessment: 00:59 General: Appears in no apparent distress. comfortable, Behavior is calm, cooperative. kb4 Pain: Complains of pain in abdomen and anterior aspect of left lateral abdomen Pain does not radiate. Pain currently is 7 out of 10 on a pain scale. Neuro: Level of Consciousness is awake, alert, obeys commands, Oriented to person, place, time, situation. Cardiovascular: Patient's skin is warm and dry. Respiratory: Airway is patent Respiratory effort is even, unlabored, Respiratory pattern is regular, symmetrical. GI: Abdomen is distended, : No signs and/or symptoms were reported regarding the genitourinary system. EENT: No signs and/or symptoms were reported regarding the EENT system. Derm: No signs and/or symptoms reported regarding the dermatologic system. Musculoskeletal: No signs and/or symptoms reported regarding the musculoskeletal system. 02:00 Reassessment: Patient and/or family updated on plan of care and expected duration. Pain kb4 level reassessed. Patient is alert, oriented x 3, equal unlabored respirations, skin warm/dry/pink. 03:23 Reassessment: pt is passing watery stools. kb4 04:00 Reassessment: Patient and/or family updated on plan of care and expected duration. Pain kb4 level reassessed. Patient is alert, oriented x 3, equal unlabored respirations, skin warm/dry/pink. PT REFUSED ct due to actively having bowel movements Patient states feeling better. Patient states symptoms have improved. 04:00 GI: Bowel sounds present X 4 quads. kb4 Vital Signs: 00:12 Weight 81.65 kg; Height 5 ft. 4 in. ; Pain 7/10; vc1 00:16 BP 145 / 99; Pulse 104; Resp 16; Temp 98.3; Pulse Ox 98% ; vc1 04:00 BP 135 / 65; Pulse 88; Resp 18; Pulse Ox 100% on R/A; kb4 00:12 Body Mass Index 30.90 (81.65 kg, 162.56 cm) vc1 00:12 Pain Scale: Adult vc1 ED Course: 11/13 23:18 Patient arrived in ED. mr 11/14 00:02 Dewayne Marroquin PA-C is PHCP. cp 00:02 Donald Kendall DO is Attending Physician. cp 00:14 Triage completed. vc1 00:15 Arm band placed on right wrist. vc1 00:22 Lizbeth Joaquin, RN is Primary Nurse. kb4 01:05 Patient has correct armband on for positive identification. kb4 01:05 Initial lab(s) drawn, by ED staff, sent to lab. EKG done, by ED staff, reviewed by john Kendall DO. Inserted saline lock: 20 gauge in left antecubital area, using aseptic technique. Blood collected. Flushed with 10 mL NS. 03:59 Miguel Washington MD is Referral Physician. cp 04:32 No provider procedures requiring assistance completed. IV discontinued, intact, kb4 bleeding controlled, No redness/swelling at site. Pressure dressing applied. 04:33 Provided Education on: d/c instructions. kb4 Administered Medications: 00:57 Drug: Dulcolax SD Suppository 10 mg SD once Route: SD; kb4 01:20 Follow up: Response: No adverse reaction kb4 00:58 Drug: Famotidine IVP 20 mg IVP once; dilute with 10 mL 0.9% NaCl; give over 2 minutes kb4 Route: IVP; Site: left antecubital; 01:21 Follow up: Response: No adverse reaction kb4 00:58 Drug: Ondansetron IVP 4 mg IVP once; over 2 minutes Route: IVP; Site: left antecubital; kb4 01:21 Follow up: Response: No adverse reaction kb4 00:58 Drug: NS 0.9% IV 1000 ml IV at 1 bolus Per protocol; to be given as a bolus over 60 kb4 minutes Route: IV; Rate: 1 bolus; Site: left antecubital; 01:21 Follow up: Response: No adverse reaction kb4 04:32 Follow up: IV Status: Completed infusion kb4 00:58 Drug: Lactulose PO 30 grams 45 ml PO once Volume: 45 ml; Route: PO; kb4 01:21 Follow up: Response: No adverse reaction kb4 00:58 Drug: morphine IVP or IV 4 mg IVP once over 4 mins Route: IVP; Infused Over: 4 mins; kb4 Site: left antecubital; 01:21 Follow up: Response: No adverse reaction kb4 01:29 Drug: Dulcolax SD Suppository 10 mg SD once Route: SD; al5 03:25 Follow up: Response: No adverse reaction kb4 03:23 Drug: morphine IVP or IV 4 mg IVP once over 4 mins Route: IVP; Infused Over: 4 mins; kb4 Site: left antecubital; 04:32 Follow up: Response: No adverse reaction kb4 03:23 Drug: metoCLOPramide IVP 10 mg IVP once; over 1 to 2 minutes Route: IVP; Site: left kb antecubital; 04:32 Follow up: Response: No adverse reaction kb4 Medication: 04:33 VIS not applicable for this client. kb4 Outcome: 03:59 Discharge ordered by MD. english 04:32 Discharged to home ambulatory, kb4 04:32 Condition: good 04:32 Discharge instructions given to patient, Instructed on discharge instructions, follow up and referral plans. Demonstrated understanding of instructions, follow-up care, 04:33 Patient left the ED. kb4 Signatures: Jessica Price, Dewayne Esparza PA-C Carla Jaimes cp RN RN vc1 Tati Villavicencio, RN RN al5 Lizbeth Joaquin, RN RN kb4
--- NOTE | 2024-11-14 04:00 | EDPHYS ---
Physician Documentation [facility] Name: May Age: 38 yrs Sex: Female : 1985 Arrival Date: 11/13/2024 Time: 23:16 Bed 4 Private MD: ED Physician Donald Kendall HPI: 11/14 00:35 This 38 yrs old Female presents to ER via Ambulatory with complaints of Constipation. cp 00:35 The patient presents with abdominal pain in the left upper quadrant, in the left lower cp quadrant, abdominal distention that is diffuse. 00:35 Onset: The symptoms/episode began/occurred gradually, and became worse today. cp Associated signs and symptoms: Pertinent positives: chest pain, constipation, nausea, back pain. Severity of pain: in the emergency department the pain is unchanged despite home interventions. 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 - Infectious Disease History:: Denies. - Social history:: Smoking status: Patient reports the use of cigarette tobacco products, smokes one-half pack cigarettes per day. ROS: 00:40 Constitutional: Negative for body aches, chills, fever, poor PO intake, cp 00:40 Eyes: Negative for injury, pain, redness, and discharge, cp 00:40 Cardiovascular: Positive for chest pain, 00:40 Respiratory: Negative for cough, shortness of breath, wheezing, 00:40 Abdomen/GI: Positive for abdominal pain, nausea, constipation, Exam: 00:45 Constitutional: The patient appears in no acute distress, alert, awake, cp non-diaphoretic, non-toxic, well developed, well nourished, uncomfortable, overweight 00:45 Head/Face: Normocephalic, atraumatic. cp 00:45 Eyes: Periorbital structures: appear normal, Conjunctiva: normal, no exudate, no cp injection, Sclera: no appreciated abnormality, Lids and lashes: appear normal, bilaterally, 00:45 ENT: External ear(s): are unremarkable, Nose: is normal, Mouth: Lips: moist, Oral mucosa: moist, Posterior pharynx: Airway: no evidence of obstruction, patent, 00:45 Chest/axilla: Inspection: normal, 00:45 Cardiovascular: Rate: tachycardic, Rhythm: regular, Edema: is not appreciated, JVD: is not appreciated, 00:45 Respiratory: the patient does not display signs of respiratory distress, Respirations: normal, no use of accessory muscles, no retractions, labored breathing, is not present, Breath sounds: are clear throughout, no decreased breath sounds, no stridor, no wheezing, 00:45 Abdomen/GI: Inspection: obese Bowel sounds: active, all quadrants, Palpation: soft, in all quadrants, moderate abdominal tenderness, in the anterior aspect of left lateral abdomen and left upper quadrant, rebound tenderness, is not appreciated, involuntary guarding, is not appreciated, 00:45 Skin: cellulitis, is not appreciated, no rash present. 00:45 Neuro: Orientation: to person, place \T\ time. Mentation: is normal, 00:50 ECG was reviewed by the Attending Physician. cp Vital Signs: 00:12 Weight 81.65 kg; Height 5 ft. 4 in. ; Pain 7/10; vc1 00:16 BP 145 / 99; Pulse 104; Resp 16; Temp 98.3; Pulse Ox 98% ; vc1 04:00 BP 135 / 65; Pulse 88; Resp 18; Pulse Ox 100% on R/A; kb4 00:12 Body Mass Index 30.90 (81.65 kg, 162.56 cm) vc1 00:12 Pain Scale: Adult vc1 MDM: 00:19 Medical Screening Exam initiated cp 03:58 Data reviewed: vital signs, nurses notes, lab test result(s). cp 03:58 Differential diagnosis: bowel obstruction, diverticulitis, non-specific abd pain, cp pancreatitis, Pyelonephritis, Ureterolithiasis, urinary tract infection, constipation. I considered the following discharge prescriptions or medication management in the emergency department Medications were administered in the Emergency Department. See MAR. Test considered but Not performed: CT: abdomen/pelvis. Counseling: I had a detailed discussion with the patient and/or guardian regarding the historical points, exam findings, and any diagnostic results supporting the discharge/admit diagnosis, lab results, the need for outpatient follow up, a polisher dial, to return to the emergency department if symptoms worsen or persist or if there are any questions or concerns that arise at home. Response to treatment: the patient's symptoms have resolved after treatment, the patient's pain is gone, patient with multiple bowel movement while in ED. Refusal of service: The patient/guardian displays adequate decision making capability and despite a detailed discussion of alternatives, benefits, risks, and consequences refuses: CT Scan. 11/14 00:34 Order name: CBC with Diff; Complete Time: 03:09 cp 11/14 03:09 Interpretation: Normal except: WBC 12.00. cp 11/14 00:34 Order name: CMP; Complete Time: 03:09 cp 11/14 03:09 Interpretation: Normal except: GLOB 4.4; A/G 0.8. cp 11/14 00:34 Order name: Lipase; Complete Time: 03:09 cp 11/14 00:34 Order name: Troponin High Sensitivity; Complete Time: 03:09 cp 11/14 00:34 Order name: EKG; Complete Time: 00:35 cp 11/14 00:34 Order name: IV Saline Lock; Complete Time: 00:48 cp 11/14 00:34 Order name: Labs collected and sent; Complete Time: 00:48 cp 11/14 00:34 Order name: EKG - Nurse/Tech; Complete Time: 00:48 cp EC:50 Rate is 101 beats/min. Rhythm is regular. NC interval is normal. QRS interval is cp normal. QT interval is normal. T waves are Inverted in lead aVR. Interpreted by me. Reviewed by me. Administered Medications: 00:57 Drug: Dulcolax NC Suppository 10 mg NC once Route: NC; kb4 01:20 Follow up: Response: No adverse reaction kb4 00:58 Drug: Famotidine IVP 20 mg IVP once; dilute with 10 mL 0.9% NaCl; give over 2 minutes kb4 Route: IVP; Site: left antecubital; 01:21 Follow up: Response: No adverse reaction kb4 00:58 Drug: Ondansetron IVP 4 mg IVP once; over 2 minutes Route: IVP; Site: left antecubital; kb4 01:21 Follow up: Response: No adverse reaction kb4 00:58 Drug: NS 0.9% IV 1000 ml IV at 1 bolus Per protocol; to be given as a bolus over 60 kb4 minutes Route: IV; Rate: 1 bolus; Site: left antecubital; 01:21 Follow up: Response: No adverse reaction kb4 04:32 Follow up: IV Status: Completed infusion kb4 00:58 Drug: Lactulose PO 30 grams 45 ml PO once Volume: 45 ml; Route: PO; kb4 01:21 Follow up: Response: No adverse reaction kb4 00:58 Drug: morphine IVP or IV 4 mg IVP once over 4 mins Route: IVP; Infused Over: 4 mins; kb4 Site: left antecubital; 01:21 Follow up: Response: No adverse reaction kb4 01:29 Drug: Dulcolax NC Suppository 10 mg NC once Route: NC; al5 03:25 Follow up: Response: No adverse reaction kb4 03:23 Drug: morphine IVP or IV 4 mg IVP once over 4 mins Route: IVP; Infused Over: 4 mins; kb4 Site: left antecubital; 04:32 Follow up: Response: No adverse reaction kb4 03:23 Drug: metoCLOPramide IVP 10 mg IVP once; over 1 to 2 minutes Route: IVP; Site: left kb4 antecubital; 04:32 Follow up: Response: No adverse reaction kb4 Disposition: 04:58 Co-signature as Attending Physician, Donald DONNELLY reviewed the patient's care tt7 provided by the Advanced Practice Provider and agree with the diagnosis and treatment plan. Disposition Summary: 11/14/24 03:59 Discharge Ordered Notes: Location: Home cp Problem: new cp Symptoms: have improved cp Condition: Stable cp Diagnosis - Constipation, unspecified cp - Abdominal pain, unspecified cp Followup: cp - With: Miguel Washington MD - When: 5 - 6 days - Reason: Recheck today's complaints Discharge Instructions: - Discharge Summary Sheet cp - Abdominal Pain, Adult cp - Constipation, Adult cp Forms: - Medication Reconciliation Form cp - Antibiotic Education cp - Prescription Opioid Use cp - Patient Portal Instructions cp - Leadership Thank You Letter cp Prescriptions: - Golytely [id number] -5.86 gram Oral Recon Soln - administer 240 milliliter ORAL route every 1-2 hours As needed until bowel cp movement; 4000 milliliter; Refills: 0, Product Selection Permitted - ondansetron 8 mg Oral Tablet,disintegrating - take 1 tablet ORAL route every 12 hours; 15 tablet; Refills: 0, Product cp Selection Permitted Signatures: Dispatcher [employer] EDMS Dewayne Marroquin PA-C PA-C cp Carla Mott RN RN vc1 Tati Villavicencio, RN RN al5 Lizbeth Joaquin RN RN kb4 Donlad Kendall, DO tt7 Corrections: (The following items were deleted from the chart) 00:35 00:35 CBC+H.LAB.BRZ ordered. EDMS EDMS 00:35 00:35 COMPREHENSIVE METABOLIC PANEL+C.LAB.BRZ ordered. EDMS EDMS 00:35 00:35 LIPASE+C.LAB.BRZ ordered. EDMS EDMS 00:35 00:35 UA Rfx Harrison Cult if indicated+U.LAB.BRZ ordered. EDMS EDMS 00:35 00:35 Test, Urine+UC.LAB.BRZ ordered. EDMS EDMS 00:35 00:35 Troponin High Sensitivity+C.LAB.BRZ ordered. EDMS EDMS 03:46 00:35 Abdomen Pelvis W Con+CT.RAD.BRZ ordered. EDMS EDMS
[2024-11-14 05:09] VITALS: TEMP 98.3
[2024-11-14 05:11] VITALS: BP 135/65; O2SAT 100
== END 2024-11-14 04:33 | disposition home or self-care (01) ==
LOC: ER 23:16
DX: K59.00 Constipation, unspecified (principal); F17.210 Nicotine dependence, cigarettes, uncomplicated
CPT/HCPCS: 96361; 93005; 85025; 36415; 84484; 83690; 80053; 96375; 96374; 99284; J2765; J2405; J7030